=== PATIENT | female | born 1955 | race Caucasian/White ===

== ENCOUNTER 2020-11-17 11:28 | Emergency (ER) | payer BC | END 2020-11-17 12:06 | disposition home or self-care (01) | LOC: JVIRT 11:28 | DX: Z11.52 Encounter for screening for COVID-19 (principal) | CPT/HCPCS: G2012-GT ==

== ENCOUNTER 2021-08-10 07:04 | Day surgery (SDC) | payer BC ==
[2021-08-06 10:47] VITALS: BMI 21.2
[2021-08-10] MEDS ORDERED: LIDOCAINE HCL/PF 2% SDV 5ML VIAL ONE (07:33)
[2021-08-10] MEDS ORDERED: PROPOFOL 20 ML ONE ×4 (07:33)
[2021-08-10] MEDS ORDERED: ePHEDrine SULFATE 50 MG/1 ML AMPULE ONE (08:57)
[2021-08-10 09:36] VITALS: BP 102/50; PULSE 61; TEMP 97.8
== END 2021-08-10 09:36 | disposition home or self-care (01) ==
LOC: FASU-ENDO 07:04
PROVIDERS: ATTEND Internal Medicine Gastroenterology
PROC: 0DJD8ZZ Inspection of Lower Intestinal Tract, Via Natural or Artificial Opening Endoscopic (ICD-10-PCS; principal; 2021-08-10 08:30)
DX: Z86.010 Personal history of colon polyps (principal)